=== PATIENT | female | born 1995 | race Two or more races ===

== ENCOUNTER 2023-08-29 22:31 | Emergency (ER) | payer BC ==
[2023-08-29 22:50] VITALS: BMI 33.8
[2023-08-29 23:00] VITALS: BP 139/94; PULSE 67; RESP 16; TEMP 98.7
[2023-08-30 00:58] LABS: PH,URINE 5.5 (5.0-8.0); URINE APPEARANCE Error; URINE BILIRUBIN NEGATIVE (NEGATIVE); URINE COLOR YELLOW; URINE GLUCOSE (UA) NEGATIVE (NEGATIVE); URINE KETONE NEGATIVE (NEGATIVE); URINE LEUK ESTERASE NEGATIVE (NEGATIVE); URINE NITRITE NEGATIVE (NEGATIVE); URINE PROTEIN NEGATIVE (NEGATIVE); URINE UROBILINOGEN 0.2 mg/dL (0.2-1.0)
[2023-08-30 01:00] LABS: HCG,QUALITATIVE URINE Negative
[2023-08-30 01:14] LABS: POTASSIUM 4.7 mmol/L (3.5-5.1)
[2023-08-30 01:15] LABS: CALCIUM 9.5 mg/dL (8.5-10.1)
[2023-08-30 01:16] LABS: ALBUMIN 4.1 g/dl (3.4-5.0); BLOOD UREA NITROGEN 13.2 mg/dL (7-18)
[2023-08-30 01:19] LABS: CREATININE 0.9 mg/dL (0.55-1.3)
[2023-08-30 01:21] LABS: BILIRUBIN,TOTAL 0.4 mg/dL (0.2-1); TOT PROT 8.1 g/dl (6.4-8.2)
[2023-08-30 01:41] LABS: BASO % 0.3 % (0-2.0); EOS % 0.4 % (0-4.5); HEMATOCRIT 43.1 % (32.4-45.2); HEMOGLOBIN 14.4 GM/dL (10.7-15.3); MCH 27.6 pg (25.7-33.7); MCHC 33.4 g/dl (32.0-36.0); MEAN CELL VOLUME 82.6 fl (80-96); MEAN PLT VOLUME 8.8 fl (7.5-11.1); MONO % 8.1 % (3.8-10.2); NEUT % 56.2 % (42.8-82.8); PLATELET COUNT 342 10^3/uL (134-434); RBC 5.21 M/mm3 (3.60-5.2); RDW 13.1 % (11.6-15.6)
== END 2023-08-30 01:54 | disposition home or self-care (01) ==
LOC: FER 22:31
DX: R07.89 Other chest pain (principal); M94.0 Chondrocostal junction syndrome [Tietze]
CPT/HCPCS: 36415; 80053; 81003; 84703; 85025; 93005; 99284-25